=== PATIENT | female | born 2000 | race African-American/Black ===

== ENCOUNTER 2021-09-11 19:11 | Emergency (ER) | payer OTHER ==
[~2021-09-11] VITALS: Ht 162.6 cm; Wt 59.4 kg
[2021-09-11 19:15] VITALS: BP 110/63
--- NOTE | 2021-09-11 19:25 | PHYS DOC ---
Adult General Chief Complaint Chief Complaint: BACK PAIN OR INJURY HPI HPI Patient is a 21-year-old female who presents with low back pain that started yesterday while she was at work. 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 States it hurt last night but not that bad she was able to continue but when she woke up this morning she had pain in her left-sided low back, 7 out of 10, dull and achy in nature worse with movement and better with rest. Denies any numbness/weakness/tingling. Denies any trouble sitting, standing or walking although it does cause discomfort. States she is making urine and stool normally. States she took 2 ibuprofen last night. Denies any recent traumas, travels, illnesses, ill contacts, Covid/flu/cold symptoms. Review of Systems Review of Systems Review of systems otherwise unremarkable except noted in HPI Allergies Allergies Allergies Coded Allergies Type Severity Reaction Last Updated Verified No Known Drug Allergies 09/11/21 No Physical Exam Physical Exam Constitutional: Well developed, well nourished, no acute distress, non-toxic appearance. [] HENT: Normocephalic, atraumatic, bilateral external ears normal, oropharynx moist, no oral exudates, nose normal. [] Neck: Normal range of motion, no tenderness, Cardiovascular:Heart rate regular rhythm, no murmur [] Lungs & Thorax: Bilateral breath sounds clear to auscultation [] Abdomen: soft, no tenderness, no masses, no pulsatile masses. [] Skin: Warm, dry, no erythema, no rash. [] Back: Paraspinal muscle tenderness and spasm with no midline or point tenderness, deformities or step-offs Extremities: No tenderness, no cyanosis, no clubbing, ROM intact, no edema. [] Neurologic: Alert and oriented X 3, normal motor function, normal sensory function, able to sit, stand and walk without issue, no focal deficits noted. [] Psychologic: Affect normal, judgement normal, mood normal. [] EKG EKG [] Radiology/Procedures Radiology/Procedures [] Heart Score C/O Chest Pain: No Risk Factors: Risk Factors: DM, Current or recent (<one month) smoker, HTN, HLP, family history of CAD, obesity. Risk Scores: Risk Factors: DM, Current or recent (<one month) smoker, HTN, HLP, family history of CAD, obesity. Course & Med Decision Making Course & Med Decision Making Patient is a 21-year-old female presents with back pain Vital signs notable for fever.. Physical exam noted above. Offered work-up given the fact that she had fever. Patient stated that she has had no Covid/flu symptoms and otherwise feels well outside of the back pain and does not want any work-up and will follow up with her doctor. Given pain medicine in the ED. discussed pain management at home. Advised on stretches and physical therapy of the next couple of days advised to follow-up with primary care physician. Gave return precautions to the ED. Patient grateful, verbalized understanding agree with plan of discharge. [] Dragon Disclaimer Dragon Disclaimer This electronic medical record was generated, in whole or in part, using a voice recognition dictation system. Departure Departure: Impression: Primary Impression: Back pain Disposition: HOME / SELF CARE / HOMELESS Condition: GOOD Referrals: ANNE MCGHEE DO (PCP) Patient Instructions: Back Pain, Adult Additional Instructions: Thank you for coming into the emergency department tonight and allowing us to take care of you. Please read the attached information carefully to go back over some of the things we discussed. Please begin a Tylenol, ibuprofen and ice regimen as we discussed. He can take 800 mg of ibuprofen every 8 hours. You can also take 1000 mg of Tylenol every 8 hours. Please do not exceed recommendations for doses of these on the bottle. You can also use ice and Benadryl at nighttime to help sleep. As we discussed you will probably be sore over the next couple of days so try not to reinjure your back. You are given a work note at your request. Please follow-up with your primary care physician in the morning. Please come back with new or concerning symptoms as discussed. RAHEEL ANGELES MD Sep 11, 2021 19:25
[2021-09-11] MEDS ORDERED: ACETAMINOPHEN 500 MG TABLET PO ONE (19:30)
[2021-09-11] MEDS ORDERED: ACETAMINOPHEN/CODEINE 300/30MG 4TABLET STARTPACK. PO ONE (20:00)
[2021-09-11] MEDS ORDERED: IBUPROFEN 800 MG TABLET. PO ONE (20:00)
[2021-09-11] MEDS ORDERED: CYCLOBENZAPRINE 10 MG TABLET. PO ONE (20:00)
[2021-09-11 20:14] LABS: BACTERIA,URINE 0 /HPF (0-FEW); BILIRUBIN,URINE NEG (NEG); CLARITY,URINE CLEAR; COLOR,URINE YELLOW; GLUCOSE,URINE NEG (NEG); NITRITE,URINE NEG (NEG); RBC,URINE 0 /HPF (0-2); UROBILINOGEN,URINE 0.2 mg/dL (0.2 mg/dL); WBC,URINE OCC /HPF (0-4)
[2021-09-11 20:15] LABS: SQUAMOUS EPITHELIAL CELL,UR FEW /LPF
== END 2021-09-11 20:05 | disposition home or self-care (01) ==
LOC: ER 19:11
DX: M54.59 Other low back pain (principal); M62.830 Muscle spasm of back
CPT/HCPCS: 81001; 81025; 99284

== ENCOUNTER 2022-01-23 18:15 | Emergency (ER) | payer OTHER ==
[~2022-01-23] VITALS: Ht 162.6 cm; Wt 59.4 kg
[2022-01-23 18:55] VITALS: BP 97/66
--- NOTE | 2022-01-23 19:32 | PHYS DOC ---
Past History Additional Past Medical Histor: low bp (JAYNA QUINTEROS APRN) Past Surgical History: No Surgical History (JAYNA QUINTEROS APRN) Alcohol Use: Occasionally (JAYNA QUINTEROS APRN) General Adult EDM: Chief Complaint: SORE THROAT HPI: HPI: Patient is a 22-year-old female who presents to the emergency department for 2- week history of sore throat. Patient denies cough, fever, nasal drainage, sick exposures. (JAYNA QUINTEROS APRN) Review of Systems: Review of Systems: Constitutional: See HPI HENT: See HPI Respiratory: See HPI (JAYNA QUINTEROS APRN) Allergies: Allergies: Allergies Coded Allergies Type Severity Reaction Last Updated Verified No Known Drug Allergies 09/11/21 No (JAYNA QUINTEROS APRN) Physical Exam: PE: Constitutional: Well developed, well nourished, no acute distress, non-toxic appearance. [] HENT: Normocephalic, atraumatic, bilateral external ears normal, oropharynx moist, no oral exudates, 2+ tonsillar enlargement with erythema and exudate, uvula midline, no trismus or phonation changes, patient maintaining secretions, nose normal. [] Eyes: PERRL, EOMI, conjunctiva normal, no discharge. [] Neck: Normal range of motion, no tenderness, left posterior cervical chain lymphadenopathy, supple, no stridor. [] Cardiovascular:Heart rate regular rhythm, no murmur [] Lungs & Thorax: Bilateral breath sounds clear to auscultation [] Abdomen: Soft and flat Skin: Warm, dry, no erythema, no rash. [] Back: No tenderness, normal range of motion Extremities: No tenderness, no cyanosis, no clubbing, ROM intact, no edema. [] Neurologic: Alert and oriented X 3, normal motor function, normal sensory function, no focal deficits noted. [] Psychologic: Affect normal, judgement normal, mood normal. [] (JAYNA QUINTEROS APRN) EKG: EKG: [] (JAYNA QUINTEROS APRN) Radiology/Procedures: Radiology/Procedures: Laboratory Tests Test 01/23/22 19:10 Influenza Type A (Rapid) Negative Influenza Type B (Rapid) Negative SARS-CoV-2 Antigen (Rapid) Negative Group A Streptococcus Rapid Negative [] (JAYNA QUINTEROS APRN) Heart Score: C/O Chest Pain: N/A Risk Factors: Risk Factors: DM, Current or recent (<one month) smoker, HTN, HLP, family history of CAD, obesity. Risk Scores: Score 0 - 3: 2.5% MACE over next 6 weeks - Discharge Home Score 4 - 6: 20.3% MACE over next 6 weeks - Admit for Clinical Observation Score 7 - 10: 72.7% MACE over next 6 weeks - Early Invasive Strategies (JAYNA QUINTEROS APRN) Course & Med Decision Making: Course & Med Decision Making Pertinent Labs and Imaging studies reviewed. (See chart for details) [] Patient presents to the emergency department with a 2-week history of a sore throat. Patient will be tested for strep, influenza and COVID. Patient Centor score is 3 therefore she will be treated with antibiotic for strep throat. She was educated on symptomatic treatment. Vital signs are stable. I discussed with patient all findings and diagnostic testing as well as the need to follow- up with PCP for further evaluation and treatment or return to the ER if any new or worsening symptoms. Strict return precautions were also discussed at length. Patient voiced understanding and agreement with the plan. Patient is hemodynamically stable at the time of disposition. (JAYNA QUINTEROS APRN) Dragon Disclaimer: Dragon Disclaimer: This electronic medical record was generated, in whole or in part, using a voice recognition dictation system. (JAYNA QUINTEROS APRN) Departure Departure: Impression: Primary Impression: Pharyngitis Qualified Codes: J02.9 - Acute pharyngitis, unspecified Disposition: HOME / SELF CARE / HOMELESS Condition: GOOD Referrals: ANNE MCGHEE DO (PCP) Patient Instructions: Sore Throat Additional Instructions: You were seen in the emergency department today for sore throat. You are going to be treated for strep throat with an antibiotic. Please start and finish the antibiotic completely. Take Tylenol and ibuprofen for pain. Use warm salt water gargles. Follow-up with your primary care provider within a week. Return to the emergency department if you develop worsening of your throat pain, inability to swallow or maintain your secretions, high fevers refractory to treatment, intractable nausea or vomiting. Scripts Azithromycin (AZITHROMYCIN TABLET) 500 Mg Tablet 1 TAB PO DAILY for strep throat for 5 Days, #5 TAB 0 Refills Prov: JAYNA QUINTEROS APRN 01/23/22 Ralf Disclaimer This chart was dictated in whole or in part using Voice Recognition software in a busy, high-work load, and often noisy Emergency Department environment. It may contain unintended and wholly unrecognized errors or omissions. (JUD LOUISE MD) Attending Signature Attending Signature I have participated in the care of this patient and I have reviewed and agree with all pertinent clinical information above including history, exam, and recommendations. (JUD LOUISE MD) JAYNA QUINTEROS APRN January 23, 2022 19:32 JUD LOUISE MD January 25, 2022 18:00
[2022-01-23 19:47] LABS: INFLUENZA A PATIENT NEGATIVE (NEGATIVE); INFLUENZA B PATIENT NEGATIVE (NEGATIVE)
[2022-01-23] MEDS ORDERED: AZIT500T4 PO (19:55)
== END 2022-01-23 20:05 | disposition home or self-care (01) ==
LOC: ER 18:15
DX: J02.9 Acute pharyngitis, unspecified (principal); Z20.822 Contact with and (suspected) exposure to COVID-19
CPT/HCPCS: 87070; 87428; 87880; 99283